=== PATIENT | male | born 1985 | race Caucasian/White ===

== ENCOUNTER 2023-03-18 13:09 | Emergency (ER) | payer SELFPAY ==
[~2023-03-18] VITALS: Ht 177.8 cm; Wt 90.1 kg
[2023-03-18 13:09] VITALS: BP 136/88; TEMP 98.2; O2SAT 98
[2023-03-18] MEDS ORDERED: predniSONE 20 MG TAB PO ONE (15:25)
[2023-03-18] MEDS ORDERED: CEPHALEXIN 500 MG CAP PO ONE (15:25)
[2023-03-18] MEDS ORDERED: diphenhydrAMINE 25MG CAP PO ONE (15:25)
[2023-03-18] MEDS ORDERED: CEPH500C PO (15:26)
[2023-03-18] MEDS ORDERED: PRED20TA PO (15:26)
[2023-03-18] MEDS ORDERED: BENA25CA4 PO (15:26)
== END 2023-03-18 15:45 | disposition home or self-care (01) ==
LOC: M ED 13:09
DX: L23.9 Allergic contact dermatitis, unspecified cause (principal)
CPT/HCPCS: 99282; J7512